=== PATIENT | female | born 1935 | race Caucasian/White ===

== ENCOUNTER 2017-03-03 07:29 | Day surgery (SDC) | payer MEDICARE, BC ==
[~2017-03-03] VITALS: Ht 162.6 cm; Wt 74.3 kg
--- NOTE | 2017-03-16 12:43 | OR ---
ADMIT: 03/03/2017 RM/LOC: [facility] MR#: [id number] ACC#: [id number] [address] [address] DIONICIO DYSON [address] [place] [id number] Operative/Delivery Room Report SEX: F AGE: 81 : 1935 SURGERY DATE: 03/03/2017 SURGEON: Sb Maria MD PREOPERATIVE DIAGNOSIS: Anemia. POSTOPERATIVE DIAGNOSES: 1. Antral ulcerations, 2 small ulcerations. No active bleeding. 2. Extensive sigmoid diverticula. 3. 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 PROCEDURES PERFORMED: 1. EGD with biopsies. 2. Colonoscopy with cold biopsies of the ileocecal region. ANESTHESIA: Sedation. ESTIMATED BLOOD LOSS: None. DESCRIPTION OF PROCEDURE: After appropriate informed consent was obtained, the patient was brought to the endoscopy suite. IV sedation was provided. A well-lubricated endoscope was introduced and passed down the esophagus. The esophageal mucosa appeared normal. No evidence of stricture or narrowing. No mass or tumor. The GE junction did show a small hiatal hernia about 1 to 1.5 cm in length. The scope was advanced to the stomach. The gastric fundus appeared normal. In the gastric antrum, she did have 2 ulcerations, both about 5 mm in diameter. There was no evidence of bleeding. No visible vessel. Pylorus easily intubated. Duodenal bulb, second and third portions of the duodenum appeared normal. The scope was then pulled back into stomach, retroflexed revealing the sliding type hiatal hernia from below. No proximal gastritis or mass. Several biopsies then taken of the antrum around these ulcerations. The stomach was then deflated and the scope withdrawn. Rectal exam revealed mild hemorrhoids. No rectal mass. The scope was introduced and passed the entire length of colon. She had a pretty poor prep, a lot of liquid stool. It took a while to irrigate and suction this out. She had numerous wide mouthed, extensive diverticula, but no stricture or narrowing. The scope was easily advanced to the right colon where I ADMIT: 03/03/2017 RM/LOC: [facility] MR#: [id number] [address] [facility] [address] [place] [phone] AMBAR DYSONLINE Lacie [address] [place] [phone] Operative/Delivery Room Report SEX: F AGE: 81 : 1935 encountered a tight stricture what I assumed to be near the ileocecal region, but I was never able to advance through this strictured area. It was smaller than the diameter of the scope. I did take multiple biopsies around this stricture as it was somewhat ulcerated. It was difficult to tell if there was tumor sitting behind that, but the mucosa that I could see did not look like mass or tumor. So, with my biopsies taken, the scope was then slowly withdrawn and remainder of the colonic mucosa appeared normal on the way out. The scope was retroflexed in rectum revealing mild internal hemorrhoids. No rectal masses. The patient tolerated the procedure well and was taken to the recovery room in stable condition. bS Maria MD/ kobi JOB #: [id number] CC: Sb Maria, Attending Physician Scott Nieto, Family Physician Scott Nieto MD
[2017-03-24] MEDS ORDERED: ANTIVERT-DPS25 MG PO (11:14)
[2017-03-24] MEDS ORDERED: CORDARONE DPS200 MG PO (11:14)
[2017-03-24] MEDS ORDERED: LEXAPRO DPS10 MG PO (11:14)
[2017-03-24] MEDS ORDERED: OMEPRAZOLE20 MG PO (11:14)
[2017-03-24] MEDS ORDERED: ELAVIL-DPS25 MG PO (11:14)
[2017-03-24] MEDS ORDERED: DUONEB DPS3 ML IH (11:16)
[2017-03-24] MEDS ORDERED: TYLENOL DPS325 MG PO (11:16)
[2017-03-24] MEDS ORDERED: LOVENOX DP40 MG/0.4 SQ (11:16)
[2017-03-24] MEDS ORDERED: FEOSOL-DPS325 MG PO (11:16)
== END 2017-03-03 11:55 | disposition home or self-care (01) ==
LOC: SSS 07:29
PROC: 0DBE8ZX Excision of Large Intestine, Via Natural or Artificial Opening Endoscopic, Diagnostic (ICD-10-PCS; principal; 2017-03-03)
PROC: 0DB78ZX Excision of Stomach, Pylorus, Via Natural or Artificial Opening Endoscopic, Diagnostic (ICD-10-PCS; principal; 2017-03-03)
DX: K29.50 Unspecified chronic gastritis without bleeding (principal); F32.9 Major depressive disorder, single episode, unspecified; Z87.891 Personal history of nicotine dependence; Z96.659 Presence of unspecified artificial knee joint; Z98.890 Other specified postprocedural states; Z79.899 Other long term (current) drug therapy

== ENCOUNTER 2017-03-17 07:32 | Inpatient (IN) | payer MEDICARE, BC ==
[~2017-03-17] VITALS: Ht 157.5 cm; Wt 75.2 kg
--- NOTE | ~2017-03-17 | ECH ---
Transthoracic Echocardiography Report (TTE) Demographics Patient Name DIONICIO DYSON Date of Study 03/19/2017 Patient Number [id number] Visit Number [id number] Date of 1935 Room Number 302 Accession Number [id number] Gender Female Age 81 year(s) Referring Slade MASSEY Temple Marker Jaquelin Sauceda [facility] Physician Scott Nieto Physician Interpreting Shira Hernandez MD Relations Liaison Physician Supervising Ordering Physician Slade MASSEY MD/MLP Nurse Stress Mechanical Systems Engineer Conclusions Summary Technically fair exam. The estimated left ventricular ejection fraction is 45-50%. Mild to moderate left ventricular hypertrophy. No significant valvular abnormalities. Procedure Type of Study TTE procedure Procedure Date Date: 03/19/2017 Start: 03:48 PM Technical Quality: Fair due to patient immobility. Indications:Atrial fibrillation, Elevated Troponin and Pleural effusion. Appropriate Use Criteria: 9 Height: 62 inches Weight: 164 pounds BSA: 1.76 m Rhythm: Atrial fibrillation HR: 106 bpm BP: 64/38 mmHg M-Mode/2D Measurements LV Diastolic Dimension: 3.99 cm LV Systolic Dimension: 3.35 cm LV Septum Diastolic: 1.13 cm LV PW Diastolic: 1.37 cm AO Root Dimension: 2.08 cm Cardiac Output: 3.66 l/min Cardiac Index: 2.08 l/min*m LA volume index: 24 ml/m LVOT: 1.81 cm RV Base: 3.3 cm LVOT VTI: 13.43 cm RV Mid: 2.6 cm LV Stroke volume: 34.54 ml RV Length: 6.2 cm LV Stroke volume index: 19.62 ml/m Doppler Measurements AV Peak Velocity: 1.19 m/s MV Peak E-Wave: 0.75 m/s AV Peak Gradient: 5.66 mmHg MV Peak A-Wave: 1.05 m/s AV Mean Gradient: 3.14 mmHg MV E/A Ratio: 0.71 LVOT Peak Velocity: 0.74 m/s AV Area (Continuity):2.1 cm TR Velocity:2.59 m/s PV Peak Velocity: 0.92 m/s TR Gradient:26.83 mmHg PV Peak Gradient: 3.39 mmHg Estimated RAP:5 mmHg Estimated PASP: 31.83 mmHg Estimated RVSP: 32 mmHg RA Area: 10.53 cm Findings Left Ventricle The left ventricle is normal in size . Mild to moderate left ventricular hypertrophy. Diastolic function indeterminate due to patient's arrhythmia. Right Ventricle Normal right ventricle structure and function. Left Atrium Normal left atrial size. Right Atrium Normal right atrial size. Mitral Valve Normal mitral valve structure and function. Aortic Valve Normal aortic valve structure and function. Tricuspid Valve Normal appearing tricuspid valve. Mild tricuspid regurgitation by color Doppler. Pulmonic Valve Normal pulmonic valve structure and function. Pericardial Effusion No evidence of pericardial effusion. Miscellaneous Visualized portions of the aortic root and ascending aorta appear normal in size. Pleural Effusion No evidence of pleural effusion. Contractility Score LV regional wall motion:(0-Non visualized 1-Normal 2-Hypokinesis 3-Akinesis 4-Dyskinesis 5-Aneurysm) Signature
--- NOTE | 2017-03-20 15:02 | CO ---
ADMIT: 03/17/2017 RM/LOC: 302 [facility] MR#: [id number] [address] [address] DIONICIO DYSON [address] [place] [address] Consultation SEX: F AGE: 81 : 1935 DATE OF CONSULTATION: 03/18/2017 ATTENDING PHYSICIAN: Sb Maria CONSULTING PHYSICIAN: Rey Elena MD REASON FOR CONSULT: Evaluation of hypoxia. HISTORY OF PRESENT ILLNESS: The patient is a delightful 81-year-old female, who normally sees Dr. Nieto over in [place] for her chronic medical issues; however, recently had some GI issues, GI bleeding, had a scope. Ultimately found a mass and subsequently underwent a right hemicolectomy yesterday. Had been doing well until the last 24 hours or so, kind of had some increasing shortness of breath. She states she is kind of struggling more with some increasing shortness of breath but really does not have much in the way of cough. No sputum production. She really relays a history that over the last few months, she has had more increasing shortness of breath and dyspnea on exertion at home. No chest pain per se. She has a longstanding history of secondhand smoke exposure from her and [place] up [place] farm [place] well. Otherwise, has not ever been told that she has had underlying lung disease at all. No real cardiac history other than some hypertension. No new edema in her lower extremities recently. Her pain is really well controlled at this time. She has a catheter in. No major bowel movement return yet, she states. No headache. No tightness in her chest tonight here. PAST MEDICAL HISTORY: 1. Hypertension. 2. Depression. 3. Colonic mass, status post resection recently. 4. History of thyroid surgery. 5. History of knee replacement. MEDICATIONS: Currently during this hospital stay, she is on: 1. Ambien. 2. Antivert. 3. Cozaar. 4. Elavil. 5. Entereg. 6. Lexapro. 7. Omeprazole. 8. Lovenox. 9. Pepcid. 10.Compazine. 11.Morphine. 12.Phenergan. 13.Toradol. Please see list for details. ADMIT: 03/17/2017 RM/LOC: 302 [facility] MR#: [id number] [address] [address] DIONICIO DYSON [address] [facility] [address] [place] [address] Consultation SEX: F AGE: 81 : 1935 FAMILY HISTORY: Significant for father being alcoholic. SOCIAL HISTORY: Lives at home with her son now. as of the last 3 years. Had been to her for over 50 years. Lives [place] farm. Nonsmoker herself but extensive secondhand smoke history. No alcohol use. REVIEW OF SYSTEMS: As per HPI. Otherwise, completely reviewed and negative. PHYSICAL EXAMINATION: VITAL SIGNS: She is on 5 L saturating 97%, temperature 98.3, pulse 116, respiratory rate 28, blood pressure 171/90. GENERAL: She is alert and oriented x3, a little bit tachypneic, otherwise really quite comfortable and quite conversational. HEENT: Normocephalic, atraumatic. Pupils equal, round, and reactive to light and accommodation. Extraocular muscles intact. Dry mucous membranes. NECK: No lymphadenopathy. Soft, supple. Trachea midline. LUNGS: She has some bibasilar rales bilaterally. Symmetric thoracic excursion. Occasional end-expiratory wheeze heard, high pitched throughout. HEART: Tachycardic. No murmurs, rubs, or gallops. PMI of 5th intercostal space. ABDOMEN: Soft, nontender. Bowel sounds hypoactive. She had her dressings in place and they overall look okay without much bleeding around them. Overall, abdomen is quite soft and nontender. EXTREMITIES: No cyanosis or clubbing. She has trace to 1+ edema in bilateral lower extremities. Dorsal pedal pulses 2+ bilaterally. MUSCULOSKELETAL: 5/5 strength in all 4 extremities. NEUROLOGICAL: No focal deficits noted. Cranial nerves II through XII grossly intact. SKIN: No rashes noted. LABORATORY AND X-RAY DATA: From earlier today, her creatinine is 0.9. White count 12.7, hemoglobin 9.2, platelets 409, sodium 141, carbon dioxide 28. Chest CT, I reviewed personally. She looks like she has some underlying lung disease, some bilateral pleural effusions, flexible superimposed edema to me. Overall, read at this point in time impression is bilateral pleural effusions, overlying dependent atelectasis, small areas of infiltrate in the upper lobes bilaterally suspicious for possible pneumonia, no PE noted. ASSESSMENT: 1. Hypoxia. 2. Status post hemicolectomy for mass. 3. Hypertension. PLAN: At this point in time, looking at her x-ray, it looks like she has some ADMIT: 03/17/2017 RM/LOC: 302 [facility] MR#: [id number] [address] [place] [id number] AMBAR DYSONLINE [address] [facility] [address] [place] [address] Consultation SEX: F AGE: 81 : 1935 underlying lung disease likely secondary to her longstanding secondhand smoke and this fits with her recent history over the last few months of increasing dyspnea on exertion, looks like she has some superimposed pulmonary edema to me. She has not had a fever. Very minimal leukocytosis this morning. She is not really coughing much. I think this is more pulmonary edema and some underlying emphysema. We will give her a dose of Lasix and bronchodilator trial and see how she does. We will monitor her very closely. Should she have any fever or worsening of her condition, we will obviously start some antibiotics and proceed with a different route, but I really think and favor that it is a fluid and COPD issue at this time. I have discussed with nurse. She will keep me posted. We will continue to follow along while she is hospitalized. Rey Elena MD/ kobi JOB #: [id number] CC: Sb Maria, Attending Physician Scott Nieto, Family Physician
[2017-03-24] MEDS ORDERED: ANTIVERT-DPS25 MG PO (11:14)
[2017-03-24] MEDS ORDERED: OMEPRAZOLE20 MG PO (11:14)
[2017-03-24] MEDS ORDERED: ELAVIL-DPS25 MG PO (11:14)
[2017-03-24] MEDS ORDERED: CORDARONE DPS200 MG PO (11:14)
[2017-03-24] MEDS ORDERED: LEXAPRO DPS10 MG PO (11:14)
[2017-03-24] MEDS ORDERED: LOVENOX DP40 MG/0.4 SQ (11:16)
[2017-03-24] MEDS ORDERED: FEOSOL-DPS325 MG PO (11:16)
[2017-03-24] MEDS ORDERED: TYLENOL DPS325 MG PO (11:16)
[2017-03-24] MEDS ORDERED: DUONEB DPS3 ML IH (11:16)
--- NOTE | 2017-03-31 11:26 | OR ---
ADMIT: 03/17/2017 RM/LOC: 632 [facility] MR#: [id number] [id number] [address] [address] DIONICIO DYSON [address] [place] [phone] Operative/Delivery Room Report SEX: F AGE: 81 : 1935 Corrected: 03/18/2017 0651 nj SURGERY DATE: 03/17/2017 SURGEON: Sb Maria MD PREOPERATIVE DIAGNOSIS: Right colon mass concerning for malignancy. POSTOPERATIVE DIAGNOSIS: Right colon mass concerning for malignancy. PROCEDURE PERFORMED: Laparoscopic right hemicolectomy. EMBEDDED SYSTEMS DEVELOPER: Faustino Seo MD. ANESTHESIA: General endotracheal with the addition of Marcaine into the wounds postprocedure. ESTIMATED BLOOD LOSS: Less than 50 mL. DESCRIPTION OF PROCEDURE: After appropriate informed consent was obtained, the patient was brought to the operating room. General endotracheal anesthesia was induced. The patient's abdomen was prepped and draped in sterile fashion. A small supraumbilical incision was created. Veress needle introduced. The abdomen was insufflated with CO2. A 5 mm trocar was placed. Camera was introduced and the abdomen surveyed. She had no intraabdominal adhesions. No evidence of any lesions in the liver and no peritoneal implants. Three additional ports were placed. The cecum was grasped retracted upwards. The ileocolic vessel was identified. This was skeletonized out. It was initially difficult with the amount of fat that she had intra-abdominally to get this vessel skeletonized out but ultimately I was able to dissect it free and divide across it with a couple loads of the Endo-JORGE stapler with 2.5 mm janna. I started dissecting under the surface of the mesentery to the right colon and started out fairly lateral and in doing so, I started Kocherizing the duodenum. Once I recognize this, I was able to peel the duodenum down away from the mesentery and keep this in its normal anatomic position. Dissection was continued up to the level of the hepatic flexure from underneath the mesentery. I then turned my attention to the omentum. This was peeled off the hepatic flexure of the colon and transverse colon. I identified the area where it broken through from below at the hepatic flexure of the colon through the mesentery and I was able to then exploit that plane from the hepatic flexure region down along the white line of Toldt laterally all the way to the cecum and mobilized the entire colon medially. There are few adhesions of the distal ileum that were taken down out laterally. With this accomplished, I then was able to identify the right branch of middle colic and divided this with a Harmonic. Once I had the colon really nicely mobilized and felt we had enough length colon to bring up through the abdominal wall, I then grasp onto the base of the appendix with a locking grasper. An incision was made in the upper midline. Wound protector was placed and the bowel was brought out through the abdominal wall. I ended up identifying an area of distal ileum to perform the ADMIT: 03/17/2017 RM/LOC: 632 [facility] MR#: [id number] [address] [address] KARIS DIONICIO [address] [place] [phone] Operative/Delivery Room Report SEX: F AGE: 81 : 1935 anastomosis. About a foot or so of the ileum appeared pretty dusky, so I went back more proximal onto the ileum where it appeared viable and healthy. I also freed up mesentery to the proximal transverse colon where I wanted to create the anastomosis. The bowel was then brought together. Antimesenteric incision was made on the small bowel and an incision made through the taenia of the transverse colon. A JORGE 75 stapler was then introduced and a sdoc-le-eszw stapled anastomosis was created. It took 2 additional loads of the JORGE 75 stapler to transect across the bowel subsequently closing the enterotomy and freeing up the specimen. The specimen freed up. The staple lines all appeared intact and hemostatic. The crotch of the staple line was further reinforced with a couple of 3-0 silk sutures. The corners and crisscrossing staple lines were reinforced with further 3-0 silk sutures. The bowel was reintroduced to the abdominal cavity. We changed gloves. The wound protector was removed and the midline fascia closed with 2 single stranded #1 PDS sutures started either end and tied in the middle. The abdomen was re-insufflated. The camera was introduced. There was no blood or fluid accumulating in the abdomen. So, all the wounds were infiltrated with Marcaine. The left lower quadrant fascial defect was closed with ifxeoc-rn-uiobl 0 Vicryl suture. The abdomen was next desufflated, ports removed, skin closed with 4-0 Monocryl in the subcuticular layer. Sterile dressings were applied. Dr. Seo assisted in entire procedure. His help was necessary for retraction and camera driving. Sb Maria MD/ kobi JOB #: [id number] CC: Sb Maria, Attending Physician Scott Nieto, Family Physician Scott Nieto MD Corrected: 03/18/2017 0651 njv
--- NOTE | 2017-04-06 10:45 | CO ---
ADMIT: 03/17/2017 RM/LOC: 302 [facility] MR#: [id number] [address] [address] DIONICIO DYSON [address] [place] [phone] Consultation SEX: F AGE: 81 : 1935 DATE OF CONSULTATION: 03/19/2017 ATTENDING PHYSICIAN: Sb Maria CONSULTING PHYSICIAN: Anthony Silva MD REASON FOR CONSULTATION: New diagnosis of atrial fibrillation, rapid ventricular response, and hypotension. HISTORY OF PRESENT ILLNESS: The patient is a pleasant 81-year-old female with no known history of coronary artery disease. She is here status post hemicolectomy on the . This was done due to a mass which was found on colonoscopy which was done after a possible GI bleed. The biopsy has shown to be consistent with Crohn's disease. She has a history of hypertension and occasionally has some palpitations at home, but does not have any chest pain, tightness, or heaviness. No shortness of breath with exertion. She denies any significant lower extremity edema. She was recovering and became hypoxic yesterday and therefore was transferred down to the ICU. It looked like she was a little fluid up and therefore she was given some Lasix which did improve her saturations. Today she was actually going to be transferred up to PCU when she became tachycardic and hypotensive. She was asymptomatic with this. EKG demonstrates atrial fibrillation with rapid ventricular response. Yesterday during her episode of hypoxemia, she did have a CTA which was negative for PE. PAST MEDICAL HISTORY: Hypertension, depression, history of a thyroid surgery along with a torn tendon, 2 knee replacements, carpal tunnel, and right rotator cuff surgery. SOCIAL HISTORY: She is . She farms. She does not use any alcohol. Does not have a history of drug use or abuse. No history of tobacco use. FAMILY HISTORY: Positive for heart disease in a brother and diabetes in a brother. Negative for cancer and negative for stroke. MEDICATIONS: She is taking include: 1. Antivert 25 mg p.o. b.i.d. 2. Elavil 25 mg p.o. at bedtime. 3. Entereg 12 mg p.o. b.i.d. 4. Lexapro 10 mg p.o. at bedtime. 5. Protonix 40 mg p.o. daily. 6. DuoNeb 3 mL inhaled q.i.d. 7. Lovenox 40 subcu daily. 8. Pepcid. ALLERGIES: NO KNOWN MEDICAL ALLERGIES. REVIEW OF SYSTEMS: A 10-point review of systems reviewed and negative except for per HPI. ADMIT: 03/17/2017 RM/LOC: 302 [facility] MR#: [id number] [address] [address] DIONICIO DYSON [address] [facility] [address] [place] [address] Consultation SEX: F AGE: 81 : 1935 PHYSICAL EXAMINATION: Per Dr. Silva VITAL SIGNS: Temp 97.2, pulse 120, respirations of 20, blood pressure 64/38, and O2 saturation 94%. SKIN: Pale. EYES: Sclerae clear. No xanthelasmas. ENT: Oral mucosa is pink and moist. No jugular venous distention or carotid bruits. CHEST: Respirations are even and unlabored. Lungs are clear to auscultation. HEART: Rhythm irregular. Normal S1, S2. No murmurs, rubs or gallops. ABDOMEN: Soft and nontender. MUSCULOSKELETAL: Gait is normal. EXTREMITIES: Peripheral pulses palpable. No clubbing, cyanosis or edema. PSYCHIATRIC: Alert and oriented. Mood and affect are appropriate. ASSESSMENT: Per Dr. Silva. 1. Atrial fibrillation, new onset. 2. Status post colectomy. 3. Hypertension. PLAN: Per Dr. Silva: I agree with starting her on pressors and giving her IV fluid to help with her hypotension. I will start amiodarone drip for rate and rhythm. We will anticoagulate her if okay with Surgery. We will continue to monitor her symptoms and diagnostics, and amend our plan accordingly. Thank you for allowing us to participate in care of this patient. JEAN CARLOS Rico / Tyrone. David Silva MD / kobi JOB #: [id number] CC: Sb Maria, Attending Physician Scott Nieto, Family Physician
--- NOTE | 2017-04-08 10:36 | DS ---
ADMIT: 03/17/2017 RM/LOC: 424 [facility] MR#: [id number] [facility]#: [id number] [address] [address] DIONICIO DYSON [address] [place] [phone] Discharge Summary SEX: F AGE: 81 : 1935 ADMISSION DATE: 03/17/2017 DISCHARGE DATE: 03/23/2017 ADMITTING DIAGNOSIS: Right colon mass concerning for malignancy. DISMISSAL DIAGNOSES: 1. Crohn's disease of the right colon. 2. Hypertension. 3. Depression. 4. Thyroid surgery. 5. Previous knee replacement. PROCEDURES: Laparoscopic right hemicolectomy. HOSPITAL COURSE: The patient was an inpatient admit with routine med/surg orders. After surgery, the patient transferred to the floor without any complications. She was given a morphine RN ELIGIBILITY for pain control and was started on sips of clears. Initially, the patient recovered well while in the hospital. She did have some nausea with emesis but was treated well with Zofran. She also did have a run of increased shortness of breath, but CTA just revealed some bilateral pleural effusions and a small area of infiltrate in the upper lobes bilaterally. Internal Medicine was consulted, and the patient was started on IV antibiotics. Slowly, the patient began to feel better. She had normal return of her bowel function, was tolerating an advanced diet, and her pain was controlled. She was weaned off her RN ELIGIBILITY and was tolerating oral pain medications. Her breathing began to improve. Then on postop day #2, the patient's blood pressure dropped and she became tachycardic with rates in between 130 and 150. Cardiology was consulted, and the patient was placed in the ICU. In the ICU, she was started on Jason- Synephrine and was given amiodarone. She responded well to this. Her pressures began to normalize, and her heart rate slowed down to an appropriate range. She was found to be anemic and so primary care opted for outpatient followup with this. The patient began to start to recover well and eventually was able to DC to home on 03/23/2017. DISCHARGE INSTRUCTIONS: 1. Okay to shower. 2. Follow up with Dr. Nieto on March 30. 3. Follow up with Dr. Maria on March 31. ADMIT: 03/17/2017 RM/LOC: 424 [facility] MR#: [id number] [address] [address] DIONICIO DYSON [address] [facility] [address] [place] [phone] Discharge Summary SEX: F AGE: 81 : 1935 DISCHARGE MEDICATION LIST: 1. Omeprazole 20 mg daily. 2. Amitriptyline 25 mg at bedtime. 3. Meclizine 25 mg b.i.d. 4. Escitalopram 10 mg daily. 5. Cordarone 200 mg b.i.d. for 5 days. 6. Cordarone 200 mg daily after b.i.d. 7. DuoNeb 3 mL q.i.d. 8. Lovenox 40 mg daily. 9. Ferrous sulfate 325 mg daily. 10.Tylenol 650 mg q.4 p.r.n. JEAN CARLOS Liao / Sb Maria MD / husam JOB #: [id number] CC: Sb Maria MD, Attending Physician Scott Nieto MD, Family Physician
== END 2017-03-23 15:50 | disposition home or self-care (01) | DRG 329 ==
LOC: 6PED 07:32 → 3ICU 07:32 → WOR 07:32 → 6PED 11:51 → 3ICU 03-18 23:44 → 4PCU 03-21 15:37
PROVIDERS: ADMIT Surgery
PROC: 0DTF4ZZ Resection of Right Large Intestine, Percutaneous Endoscopic Approach (ICD-10-PCS; principal; 2017-03-17)
PROC: 30233N1 Transfusion of Nonautologous Red Blood Cells into Peripheral Vein, Percutaneous Approach (ICD-10-PCS; 2017-03-22)
DX: K50.118 Crohn's disease of large intestine with other complication (principal); J96.01 Acute respiratory failure with hypoxia; I95.9 Hypotension, unspecified; E87.70 Fluid overload, unspecified; I48.91 Unspecified atrial fibrillation; J43.9 Emphysema, unspecified; D50.9 Iron deficiency anemia, unspecified; I10 Essential (primary) hypertension; F32.9 Major depressive disorder, single episode, unspecified; Z96.659 Presence of unspecified artificial knee joint; Z77.22 Contact with and (suspected) exposure to environmental tobacco smoke (acute) (chronic); Z87.891 Personal history of nicotine dependence